=== PATIENT | male | born 1955 | race Caucasian/White ===

== ENCOUNTER → 2023-01-06 | Outpatient (CLI) | payer MEDICARE, MEDICAID, SELFPAY ==
--- NOTE | 2023-01-06 14:35 | RAD_ITS ---
EXAM: XR LUMBOSACRAL SPINE, 2 OR 3 VIEWS CLINICAL INDICATION: Postlaminectomy syndrome, not elsewhere classified TECHNIQUE: Frontal and lateral views of the lumbar spine and sacrum. COMPARISON: No relevant prior studies available. FINDINGS: VERTEBRAE: The lumbar vertebrae demonstrate normal curvature and alignment. There has been previous midline laminectomy at the L3, L4 and L5 levels, with pedicle screws and rods in place from L3 to L5. There is discontinuity/fracture involving the middle third of one of the L5 pedicles as noted on the lateral view. Lateral view also shows posterior migration of the right L3 set screw in relation to the [place]. No osseous zone of lucency about the pedicle screws. No fracture. No spondylolisthesis. Preservation of the normal lumbar lordosis. No significant facet arthropathy. DISC SPACES: Degenerative narrowing of the lower thoracic disc spaces with endplate sclerosis and marginal osteophytes. T12/L1 and L1/2 disc spaces show minimal degenerative narrowing with small marginal osteophytes. L2/3 disc space is preserved. L3/4 and L4/5 disc spaces show minimal degenerative narrowing with marginal osteophytes. L5/L1 disc space is preserved. SOFT TISSUES: Calcific abdominal aorta and its branches. Infrarenal abdominal aorta measures up to 3.6 cm in AP diameter. Cholecystectomy clips are present. OTHER: The visualized SI joints are unremarkable. Hip joint spaces are symmetric. RAD/Lumbar Spine 2 or 3 Views IMPRESSION: No evidence of lumbar spinal fracture or spondylolisthesis. Multilevel lower thoracic and lumbar degenerative disc disease. Previous midline laminectomy from L3 through L5 with pedicle screws and rods in place from L3 to L5. Discontinuity/fracture of one of the pedicle screws at L5. Posterior migration of the right L3 set screw. Electronically Signed: Donis Seymour MD at 1:41 EDT ,
--- NOTE | 2023-01-06 14:50 | RAD_ITS ---
EXAM: XR CERVICAL SPINE, 4 OR 5 VIEWS CLINICAL INDICATION: Postlaminectomy syndrome, not elsewhere classified TECHNIQUE: Frontal, lateral and bilateral oblique views of the cervical spine. COMPARISON: No relevant prior studies available. FINDINGS: VERTEBRAE: Surgical changes of the posterior elements, including pedicle screws and paraspinal rods from C3 through C6. No plain film evidence of hardware complication. Preserved vertebral body height. No acute fracture. No spondylolisthesis. Preservation of the normal cervical lordosis. No significant facet arthropathy. DISC SPACES: Degenerative changes of the intervertebral discs. SOFT TISSUES: Unremarkable. No prevertebral soft tissue widening. LUNG APICES: Clear. RAD/Cerv Spine 2 or 3 Views IMPRESSION: No acute findings in the cervical spine. Degenerative and postsurgical changes. Electronically Signed: Gelacio Cee MD at 1:43 EDT ,
== END | disposition home or self-care (01) ==
PROVIDERS: Referring Provider Anesthesiology Pain Medicine; Visit Provider Anesthesiology Pain Medicine
DX: M96.1 Postlaminectomy syndrome, not elsewhere classified (principal)
CPT/HCPCS: 72040; 72100